=== PATIENT | female | born 1980 | race Caucasian/White ===

== ENCOUNTER 2016-06-30 17:38 | Emergency (ER) | payer MEDICAID ==
[~2016-06-30] VITALS: Ht 165.1 cm; Wt 72.6 kg
--- NOTE | 2016-06-30 18:22 | Emergency Room Report ---
History of Present Illness General Chief Complaint: Female Urogenital Problems Source: Patient Present Illness HPI 35-year-old female presents emergency department complaining of urinary frequency times one week, in addition to 8/10 in severity constant/dull left- sided low back pain x2 days. Patient denies nausea, vomiting, fevers, chills, rash, abdominal pain, hematuria, dysuria or vaginal discharge. Patient reports history of UTI which progressed to pyelonephritis and urosepsis approximately one year ago. Pt. also reports hx of renal stones. She denies recent travel, or ill contacts. denies . Denies CP, Palpitations, LOC, AMS, dizziness , Changes in Vision, Sensation, paresthesias, or a sudden severe headache. Allergies: Coded Allergies: No Known Allergies (Unverified , 06/30/16) Patient History Past Medical History: see triage record Past Surgical History: none Pertinent Family History: none Last Menstrual Period: hyst Now: No Immunizations: UTD Reviewed Nursing Documentation: PMH: Agreed, PSxH: Agreed Nursing Documentation-PMH Past Medical History: No History, Except For Hx Diabetes: Yes Review of Systems All Other Systems: negative except mentioned in HPI Physical Exam Vital Signs Date Time Temp Pulse Resp B/P Pulse Ox O2 Delivery O2 Flow Rate FiO2 06/30/16 18:02 98.4 96 18 169/121 98 Room Air Sp02 EP Interpretation: reviewed, normal General Appearance: no apparent distress, alert, GCS 15, non-toxic Head: normocephalic, atraumatic Eyes: bilateral eye PERRL, bilateral eye normal inspection ENT: hearing grossly normal, normal pharynx, no angioedema, normal voice Neck: full range of motion, supple/symm/no masses Respiratory: chest non-tender, lungs clear, normal breath sounds, speaking full sentences Cardiovascular #1: regular rate, rhythm, no edema Gastrointestinal: normal bowel sounds, non tender, soft, no guarding, no rebound Rectal: deferred Genitourinary: normal inspection, no CVA tenderness, CVA tenderness (L) Musculoskeletal: back normal, gait/station normal, normal range of motion, non- tender Neurologic: alert, oriented x3, responsive, motor strength/tone normal, sensory intact, cerebellar normal, normal gait, speech normal Psychiatric: judgement/insight normal, memory normal, mood/affect normal Skin: normal color, no rash, warm/dry, well hydrated Lymphatic: no adenopathy Medical Decision Making PA Attestation Dr. Alcaraz is my supervising Physician whom patient management has been discussed with. Diagnostic Impression: Primary Impression: Pyelonephritis Additional Impression: UTI (urinary tract infection) Qualified Codes: N30.01 - Acute cystitis with hematuria ER Course 35-year-old female presents emergency department complaining of urinary frequency times one week, in addition to left-sided low back pain x2 days. Patient denies nausea, vomiting, fevers, chills, rash, abdominal pain, hematuria , dysuria or vaginal discharge. Patient reports history of UTI which progressed to pyelonephritis and urosepsis approximately one year ago. She denies recent travel, or ill contacts. denies . Ddx considered but are not limited to UTi , Pyelo, STI, Stone, Cystitis Vital signs: are WNL, pt. is afebrile H&PE are most consistent with UTI will r/o stone ORDERS: - UA labs are attached - occasional bacterial and squamous cells, elevated wbc' s suspicious/consistent with infection rather than contamination. -Urine Hcg: Negative -CT Abdomen and Pelvis no contrast: no stones, bilateral hydronephrosis, no obstruction per official radiology report. ED INTERVENTIONS: -Pyridium PO -4 mg Morphine IM -Cipro 500mg PO DISCHARGE: At this time pt. is stable for d/c to home. Will provide printed patient care instructions, and any necessary prescriptions. Care plan and follow up instructions have been discussed with the patient prior to discharge. Labs Test 06/30/16 18:10 Urine Color Pale yellow Urine Appearance Clear Urine pH 7 (4.5-8.0) Urine Specific Doyle 1.010 (1.005-1.035) Urine Protein 1+ (NEGATIVE) Urine Glucose (UA) 4+ (NEGATIVE) Urine Ketones Negative (NEGATIVE) Urine Occult Blood 4+ (NEGATIVE) Urine Nitrite Negative (NEGATIVE) Urine Bilirubin Negative (NEGATIVE) Urine Urobilinogen Normal MG/DL (0.0-1.0) Urine Leukocyte Esterase Negative (NEGATIVE) Urine RBC 15-20 /HPF (0 - 2) Urine WBC 5-10 /HPF (0 - 2) Urine Squamous Epithelial Cells Occasional /LPF Urine Bacteria Occasional /HPF (NONE) Urine HCG, Qualitative Negative Last Vital Signs Date Time Temp Pulse Resp B/P Pulse Ox O2 Delivery O2 Flow Rate FiO2 06/30/16 18:02 98.4 96 18 169/121 98 Room Air Disposition: HOME, SELF-CARE Condition: Stable Scripts Phenazopyridine Hcl* (PYRIDIUM*) 100 Mg Tablet 100 MG ORAL THREE TIMES A DAY for 3 Days, #10 TAB Prov: Katarina Lee 06/30/16 Ciprofloxacin Hcl* (CIPROFLOXACIN HCL*) 500 Mg Tablet 500 MG ORAL EVERY 12 HOURS for 7 Days, #14 TAB 0 Refills Prov: Katarina Lee 06/30/16 Referrals: [facility]ERR[facility] (PCP) Patient Instructions: Pyelonephritis, Adult, [id number], Urinary Tract Infection Additional Instructions: Take medications as directed. Follow up with PCP in 3-5 days Return sooner to ED if new symptoms occur, or current symptoms become worse. - Please note that this Emergency Department Report was dictated using [employer] worker helper technology software, occasionally this can lead to erroneous entry secondary to interpretation by the dictation equipment. Katarina Lee June 30, 2016 18:22
[2016-06-30] MEDS ORDERED: Phenazopyridine 200mg tab ORAL ONE (18:30)
[2016-06-30 18:40] LABS: APPEARANCE,URINE CLEAR; KETONES,URINE NEGATIVE (NEGATIVE); LEUKOCYTE ESTERASE ,URINE NEGATIVE (NEGATIVE); NITRITE,URINE NEGATIVE (NEGATIVE); PH,URINE 7 (4.5-8.0); PROTEIN,URINE 1+ (NEGATIVE); UROBILINOGEN,URINE NORMAL MG/DL (0.0-1.0)
[2016-06-30 18:51] LABS: RBC,URINE 15-20 /HPF (0 - 2); SQUAMOUS EPITHELIAL CELL,UR OCCASIONAL /LPF (NONE/OCC)
[2016-06-30 18:52] LABS: BACTERIA,URINE OCCASIONAL /HPF
[2016-06-30] MEDS ORDERED: Morphine Sulfate 4mg/ml Inj IM ONE (19:00)
[2016-06-30 19:12] VITALS: BP 157/98
[2016-06-30] MEDS ORDERED: PHENAZOPYRIDIN100 MG ORAL (20:36)
[2016-06-30] MEDS ORDERED: CIPROFLOXACIN500 M2 ORAL (20:36)
[2016-06-30] MEDS ORDERED: Ciprofloxacin 500mg tab ORAL ONE (20:45)
[2016-06-30 21:06] VITALS: BP 154/96
[2016-06-30 21:07] VITALS: BP 157/98
--- NOTE | 2016-07-01 09:55 | Diagnostic Imaging Report ---
Indication: Abdominal pain Technique: Continuous helical transaxial imaging of the abdomen and pelvis was obtained from the lung bases to the pubic symphysis. No intravenous contrast was administered. Coronal 2-D reformats were also obtained. Total Dose length Product (DLP): [address] Dose Index Volume (CTDIvol): 18 mGy Comparison: none Findings: Examination demonstrates bilateral hydronephrosis without evidence of obstructing stones. There are also no evidence of nonobstructing stones. The bladder is not distended. Reason for this is not known. Consider UTI or pyelonephritis. The appendix is not seen. The patient may have had appendectomy. Is there is no evidence of a secondary signs of acute appendicitis or inflammatory changes are identified. This no free fluid or free air identified. Evaluation of solid organs limited on this exam done without IV contrast material. Impression: Bilateral hydronephrosis. Consider pyelonephritis or UTI. Bladder not distended. The CT scanner at [facility] is accredited by the [employer] and the scans are performed using dose optimization techniques as appropriate to a performed exam including Automatic Exposure control.
== END 2016-06-30 21:08 | disposition home or self-care (01) ==
LOC: EMR 18:01
DX: N10 Acute pyelonephritis (principal); E11.9 Type 2 diabetes mellitus without complications; Z87.442 Personal history of urinary calculi
CPT/HCPCS: 74176; 81003; 81025; 96372; 99284; J2270